=== PATIENT | female | born 1955 | race Caucasian/White ===

== ENCOUNTER 2016-09-08 12:35 | Emergency (ER) | payer OTHER ==
[~2016-09-08] VITALS: Ht 154.9 cm; Wt 63.0 kg
[~2016-09-08 12:35] MED LIST: DIPH50 PO
[2016-09-08] MEDS ORDERED: HYDROCODONE/ACETAMINOPHEN 5-325 MG TABLET PO ONE (13:15)
[2016-09-08] MEDS ORDERED: KETOROLAC TROMETHAMINE 30 MG/ML VIAL IM ONE (13:15)
[2016-09-08 14:57] LABS: APPEARANCE,URINE CLEAR (CLEAR)
[2016-09-08 14:58] LABS: ADD UA MICROSCOPIC NO; GLUCOSE, URINE (UA) NEGATIVE (NEGATIVE); KETONES,URINE NEGATIVE (NEGATIVE); LEUKOCYTE ESTERASE ,URINE NEGATIVE (NEGATIVE); OCCULT BLOOD,URINE NEGATIVE (NEGATIVE); PROTEIN,URINE NEGATIVE (NEGATIVE)
[2016-09-08 15:52] VITALS: BP 110/71
== END 2016-09-08 17:53 | disposition home or self-care (01) ==
LOC: EMS 12:45
DX: M62.830 Muscle spasm of back (principal)
CPT/HCPCS: 72110; 81003; 96372; 99285; J1885